=== PATIENT | male | born 1945 | race Caucasian/White ===

== ENCOUNTER 2019-12-09 06:14 | Outpatient (CLI) | payer MEDICARE, OTHER ==
[2019-12-09 11:41] LABS: ALT (SGPT) 34 U/L (8-55); AST (SGOT) 14 U/L (5-34); Albumin 4.1 g/dL (3.4-4.8); Alkaline Phosphatase 60 U/L (40-110); Anion Gap 12 mmol/L (10-20); BUN (Urea Nitrogen) 19 mg/dL (8.4-25.7); Bilirubin, Total 0.8 mg/dL (0.2-1.2); Calc. Creatinine Clearance 0 mL/min (70-130); Calcium 8.9 mg/dL (7.8-10.44); Carbon Dioxide 24 mmol/L (23-31); Cardiac Risk 6.3 (Less than 4.5); Chloride 108 mmol/L (98-107); Cholesterol 184 mg/dl (< 200 Desired); Estimated GFR-MDRD 71; Globulin 2.1 g/dL (2.4-3.5); Glucose 119 mg/dL (83-110); HDL Cholesterol 29 mg/dL (>60 Neg Risk); LDL Cholesterol, Calculated 130 mg/dL; Potassium 4.4 mmol/L (3.5-5.1); Protein, Total 6.2 g/dL (5.8-8.1); Sodium 140 mmol/L (136-145); Triglycerides 126 mg/dL (Less than 150)
[2019-12-09 11:55] LABS: Cardiac Risk 6.3 (Less than 4.5)
[2019-12-10 12:19] LABS: SARS-CoV-2 MS2 Positive; SARS-CoV-2 N Gene Negative; SARS-CoV-2 S Gene Negative; SARS-CoV-2 orf1ab Negative
== END 2019-12-09 06:15 | disposition home or self-care (01) ==
LOC: LABBT 06:14
PROVIDERS: ATTEND Internal Medicine Cardiovascular Disease
DX: Z01.812 Encounter for preprocedural laboratory examination (principal); Z11.59 Encounter for screening for other viral diseases
CPT/HCPCS: 80053; 80061; U0003; 87635

== ENCOUNTER 2019-12-12 06:39 | Day surgery (SDC) | payer MEDICARE, OTHER ==
[2019-12-06 11:10] VITALS: BMI 31.2
[2019-12-12] MEDS ORDERED: Ketamine 50 MG/ML (10ML VIAL) ONE (07:46)
[2019-12-12] MEDS ORDERED: PROPOFOL 20 ML ONE (07:46)
--- NOTE | 2019-12-12 15:15 | OP ---
DATE OF PROCEDURE: 12/12/2019 PROCEDURE PERFORMED: Transesophageal echocardiogram. INDICATION: A 74-year-old gentleman with paroxysmal atrial fibrillation. DESCRIPTION OF PROCEDURE: The patient was taken to the PACU. The patient sedated by Anesthesiology. A transesophageal probe was placed into the distal esophagus and stomach. Echocardiographic images were obtained. The transesophageal probe was removed. FINDINGS: 1. Normal left systolic function. 2. Normal mitral aortic valve. 3. Mild aortic regurgitation. 4. Mild mitral regurgitation .. 5. Mild tricuspid regurgitation. 6. No thrombus noted in left atrium or atrial appendage. 7. Atherosclerotic debris in the descending aorta. IMPRESSION: No formed thrombus in left atrium or left atrial appendage. Job ID: [id number]
== END 2019-12-12 10:15 | disposition home or self-care (01) ==
LOC: CCL 06:39
PROVIDERS: ATTEND Internal Medicine Cardiovascular Disease
PROC: B24BZZ4 Ultrasonography of Heart with Aorta, Transesophageal (ICD-10-PCS; principal; 2019-12-12)
DX: I48.0 Paroxysmal atrial fibrillation (principal); I08.3 Combined rheumatic disorders of mitral, aortic and tricuspid valves; I10 Essential (primary) hypertension; Z79.01 Long term (current) use of anticoagulants; Z79.899 Other long term (current) drug therapy
CPT/HCPCS: 92960; 93005; 93010; 93312; J2704

== ENCOUNTER 2020-10-13 13:29 | Outpatient (CLI) | payer MEDICARE, OTHER ==
[2020-10-13 16:34] LABS: ALT (SGPT) 20 U/L (8-55); AST (SGOT) 14 U/L (5-34); Alkaline Phosphatase 55 U/L (40-110); Anion Gap 11 mmol/L (10-20); BUN (Urea Nitrogen) 26 mg/dL (8.4-25.7); Bilirubin, Total 0.5 mg/dL (0.2-1.2); Calc. Creatinine Clearance 0 mL/min (70-130); Carbon Dioxide 27 mmol/L (23-31); Cardiac Risk 4.2 (Less than 4.5); Chloride 109 mmol/L (98-107); Cholesterol 144 mg/dl (< 200 Desired); Globulin 2.3 g/dL (2.4-3.5); Glucose 96 mg/dL (83-110); HDL Cholesterol 34 mg/dL (>60 Neg Risk); LDL Cholesterol, Calculated 75 mg/dL; Potassium 4.9 mmol/L (3.5-5.1); Protein, Total 6.3 g/dL (5.8-8.1); Sodium 142 mmol/L (136-145); Triglycerides 175 mg/dL (Less than 150)
== END 2020-10-13 13:30 | disposition home or self-care (01) ==
LOC: SCSRAD 13:29
PROVIDERS: ATTEND Nurse Practitioner Family
DX: I48.91 Unspecified atrial fibrillation (principal); E78.00 Pure hypercholesterolemia, unspecified
CPT/HCPCS: 36415; 71046; 80053; 80061; 84443

== ENCOUNTER 2023-01-25 13:49 | Outpatient (CLI) | payer MEDICARE, OTHER | END 2023-01-25 13:50 | disposition home or self-care (01) | LOC: SCSRAD 13:49 | PROVIDERS: ATTEND Nurse Practitioner Family | DX: I48.91 Unspecified atrial fibrillation (principal) | CPT/HCPCS: 71046 ==